=== PATIENT | male | born 1990 | race Caucasian/White ===

== ENCOUNTER 2018-03-23 20:29 | Emergency (ER) | payer OTHER ==
[~2018-03-23] VITALS: Ht 170.2 cm; Wt 99.8 kg
--- NOTE | 2018-03-23 20:29 | NUR ---
Patient BIBA [facility] accompanied by Morelia ADAME, transferred to bed 4. RN evaluating patient at bedside.
[2018-03-23 20:33] VITALS: BP 146/77
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
[2018-03-23] MEDS ORDERED: NACL 0.9% 1,000 ML IV ONE (20:55)
[2018-03-23 21:10] LABS: BARBITURATE, URINE NEG. ng/ml (NEG <=200); BENZODIAZEPINE, URINE NEG. ng/mL (NEG <=200); CANNABINOID, URINE NEG. ng/mL (NEG <=50); COCAINE, URINE NEG. ng/mL (NEG <=300); OPIATE, URINE NEG. ng/mL (NEG <=2000); PHENCYCLIDINE SCREEN,URINE POS. ng/mL (NEG <=25)
[2018-03-23 21:16] LABS: BASOPHILS # (AUTO) 0.1 K/uL (0.00-0.22); BASOPHILS % (AUTO) 0.7 % (0.0-2.0); EOSINOPHILS # (AUTO) 0.4 K/uL (0-0.4); EOSINOPHILS % (AUTO) 2.9 % (0.0-4.0); HEMATOCRIT 42.4 % (36-52); HEMOGLOBIN 13.9 g/dL (12.0-18.0); LYMPHOCYTES # (AUTO) 2.2 K/uL (2.0-11.5); LYMPHOCYTES % (AUTO) 17.7 % (20.5-51.1); MEAN CORPUSCULAR HEMOGLOBIN 29 pg (27-31); MEAN CORPUSCULAR HGB CONC 33 g/dL (33-37); MEAN CORPUSCULAR VOLUME 88.5 fL (80-94); MONOCYTES # (AUTO) 1.2 K/uL (0.8-1.0); MONOCYTES % (AUTO) 9.4 % (1.7-9.3); NEUTROPHILS # (AUTO) 8.7 K/uL (1.8-7.7); NEUTROPHILS % (AUTO) 69.3 % (42.2-75.2); PLATELET COUNT (AUTO) 302 K/uL (140-450); RED BLOOD CELL COUNT(AUTO) 4.79 MIL/uL (4.20-6.10); RED CELL DISTRIBUTION WIDTH 13.9 % (11.6-13.7); WHITE BLOOD COUNT (AUTO) 12.5 K/uL (4.8-10.8)
[2018-03-23 21:24] LABS: ANION GAP 7.7 (8-16); CARBON DIOXIDE 26.7 mmol/L (21-32); CHLORIDE 107 mmol/L (98-107); CREATININE 1.1 mg/dL (0.7-1.3); GFR ARICAN-AMERICAN 104 mL/min (>90); GLUCOSE 69 mg/dL (74-106); POTASSIUM 3.4 mmol/L (3.5-5.1); SODIUM SERUM 138 mmol/L (136-145); UREA NITROGEN, BLOOD 8 mg/dL (7-18)
[2018-03-23 21:31] LABS: ALBUMIN 3.8 g/dL (3.4-5.0); ASPARTATE AMINOTRANSFERASE 23 U/L (15-37); TOTAL BILIRUBIN 0.5 mg/dL (0.0-1.0)
[2018-03-23 21:35] LABS: SALICYLATE < 2.8 mg/dL (2.8-20.0)
[2018-03-23 21:36] LABS: ACETAMINOPHEN < 0.5 ug/ml (10-30)
--- NOTE | 2018-03-23 21:50 | NUR ---
PATIENT RESTING AT THIS TIME. NO SIGNS OF DISTRESS.
--- NOTE | 2018-03-23 22:50 | NUR ---
PATIENT RESTING AT THIS TIME. NO SIGNS OF DISTRESS.
--- NOTE | 2018-03-24 | NUR ---
PATIENT RESTING AT THIS TIME. NO SIGNS OF DISTRESS.
--- NOTE | 2018-03-24 01:30 | NUR ---
PATIENT RESTING AT THIS TIME. NO SIGNS OF DISTRESS.
--- NOTE | 2018-03-24 02:15 | NUR ---
PATIENT SUCCESSFULLY PASSED ROAD TEST. PT ABLE TO ANSWER QUESTIONS APPROPRIATELY. PT TOLD TO WAIT IN LOBBY UNTIL MORNING. PT STATES THAT HE HAS HOME TO GO TO.
[2018-03-24 02:30] VITALS: BP 135/72
--- NOTE | 2018-03-24 02:30 | NUR ---
Patient discharged with v/s stable. Written and verbal after care instructions given and explained. Patient verbalized understanding. Ambulatory with steady gait. All questions addressed prior to discharge. Advised to follow up with PMD.
== END 2018-03-24 02:30 | disposition home or self-care (01) ==
LOC: MED 20:29
DX: F19.10 Other psychoactive substance abuse, uncomplicated (principal); R03.0 Elevated blood-pressure reading, without diagnosis of hypertension
CPT/HCPCS: 36415; 80053; 80305; 85025; 93005; 99285; G0480; G0482; 96360